=== PATIENT | male | born 1980 | race African-American/Black ===

== ENCOUNTER 2017-03-06 15:35 | Inpatient (IN) ==
[2017-03-06] MEDS ORDERED: SODIUM CHLORIDE 0.9% 1,000 ML IV STA (16:52)
[2017-03-06] MEDS ORDERED: cefTRIAXone 1,000 MG in SODIUM CHLORIDE 0.9% 100 ML IV STA (16:52)
[2017-03-06] MEDS ORDERED: ACETAMINOPHEN 500 MG TABLET ONE (16:55)
[2017-03-06] MEDS ORDERED: ACETAMINOPHEN 500 MG TABLET PO STA (17:04)
[2017-03-06] MEDS ORDERED: cefTRIAXone 1,000 MG VIAL ONE (17:16)
[2017-03-06 17:17] LABS: Basophils % 1.1 % (0.0-0.8); Eosinophils # 0.3 10*3/uL (0.0-0.87); Eosinophils % 6.9 % (0.00-10.9); Hematocrit 30.9 VOL% (42.0-52.0); Hemoglobin 11.2 GM/DL (14.0-18.0); Immature Granulocytes % 1.6 %; Immature Granulocytes Absolute 0.06 #; Lymphocytes # 0.5 10*3/uL (1.4-4.0); Lymphocytes % 14.2 % (21.2-54.2); Mean Corpuscular HGB Conc 36.2 GM/DL (32-36); Mean Corpuscular Hemoglobin 31 PG (27-34); Mean Corpuscular Volume 86.6 FL (87-102); Mean Platelet Volume 10.2 FL (9.6-12.0); Monocytes # 0.4 10*3/uL (0.11-0.8); Monocytes % 10.3 % (1.7-12.7); Neutrophils # 2.5 10*3/uL (1.4-7.4); Neutrophils % 65.9 % (38.7-73.9); Platelet Count 248 T/CUMM (130-400); Red Blood Count 3.57 MC/CUMM (3.8-5.5); Red Cell Distribution Width 17.2 % (9.3-17.3); White Blood Count 3.8 T/CUMM (4-12)
[2017-03-06 17:28] LABS: INR 1.1; PT Patient Result 11.4 SECS; Partial Thromboplastin Time 32.9 SECS (0-40)
[2017-03-06 17:43] LABS: Eosinophils,CSF 1 %; Lymphocytes,CSF 32 %; Monocytes,CSF 8 %; Neutrophils,CSF 59 %
[2017-03-06 17:57] LABS: Albumin 3.8 G/DL (3.4-5.0); Bilirubin,Total 0.5 MG/DL (0.2-1.0); Calcium 9.2 MG/DL (8.5-10.1); Osmolality,Calculated 243.9 MOS/KG (273-304); Potassium 4.7 MMOL/L (3.5-5.1)
[2017-03-06] MEDS ORDERED: guaiFENesin/DM ER 600-30 MG TABLET PO PRN (18:13)
[2017-03-06] MEDS ORDERED: ONDANSETRON 4 MG/2 ML VIAL IV PRN (18:13)
[2017-03-06] MEDS ORDERED: ACETAMINOPHEN 325 MG TABLET PO PRN (18:13)
[2017-03-06] MEDS ORDERED: diphenhydrAMINE CAP 25 MG CAPSULE PO PRN (18:13)
[2017-03-06] MEDS ORDERED: DOCUSATE SODIUM 100 MG CAPSULE PO PRN (18:13)
[2017-03-06] MEDS ORDERED: MORPHINE 2 MG/1 ML SYRINGE IV PRN (18:13)
[2017-03-06] MEDS ORDERED: LACTULOSE 20 GM/30 ML UDCUP PO PRN (18:13)
[2017-03-06] MEDS ORDERED: PROMETHAZINE 25 MG/1 ML VIAL IM PRN (18:13)
[2017-03-06] MEDS ORDERED: KETOROLAC 60 MG/2 ML VIAL IM ONE (18:20)
[2017-03-06] MEDS ORDERED: DEXAMETHASONE 10 MG/1 ML VIAL ONE (18:20)
[2017-03-06] MEDS: acetaZOLAMIDE 250 MG TABLET PO SCH (18:30)
[2017-03-06 18:36] LABS: Free T4 (Free Thyroxine) 0.52 NG/DL (0.76-1.46); Thyroid Stimulating Hormone 1.71 uIU/ml (0.358-3.74)
[2017-03-06] MEDS ORDERED: DEXTROSE 5% IV SCH (19:00)
[2017-03-06] MEDS ORDERED: AMPHOTERICIN B IV SCH (19:00)
[2017-03-06 19:24] LABS: Appearance,CSF Clear
[2017-03-06 19:25] LABS: Red Blood Cell,CSF 74 C/CUMM; White Blood Cell,CSF 48 C/CUMM
[2017-03-06] MEDS ORDERED: SULFAMETHOX/TRIMETHOPRIM 800-160 MG TABLET PO SCH (19:38)
[2017-03-06] MEDS ORDERED: acetaZOLAMIDE 250 MG TABLET PO SCH (21:00)
[2017-03-06] MEDS: AZITHROMYCIN 40 MG/ML 15 ML/BOTTLE PO SCH (22:02)
[2017-03-06] MEDS: SODIUM CHLORIDE 0.9% 1,000 ML IV SCH (22:03)
[2017-03-06] MEDS: ENOXAPARIN 40 MG/0.4 ML SYRINGE SUBCUT SCH (22:04)
[2017-03-06] MEDS: CIPROFLOXACIN 500 MG TABLET PO SCH (22:04)
[2017-03-07] MEDS: FLUCYTOSINE 500 MG CAPSULE PO SCH ×3 (00:28→11:26)
[2017-03-07 08:15] LABS: Basophils # 0.1 10*3/uL (0.0-0.2); Basophils % 0.9 % (0.0-0.8); Eosinophils % 0.3 % (0.00-10.9); Hematocrit 31.4 VOL% (42.0-52.0); Hemoglobin 11.3 GM/DL (14.0-18.0); Immature Granulocytes % 6.3 %; Immature Granulocytes Absolute 0.41 #; Lymphocytes # 0.4 10*3/uL (1.4-4.0); Lymphocytes % 5.5 % (21.2-54.2); Mean Corpuscular Hemoglobin 32 PG (27-34); Mean Corpuscular Volume 88.5 FL (87-102); Mean Platelet Volume 10.1 FL (9.6-12.0); Monocytes # 0.4 10*3/uL (0.11-0.8); Monocytes % 6.8 % (1.7-12.7); Neutrophils # 5.2 10*3/uL (1.4-7.4); Neutrophils % 80.2 % (38.7-73.9); Platelet Count 204 T/CUMM (130-400); Red Blood Count 3.55 MC/CUMM (3.8-5.5); Red Cell Distribution Width 17.4 % (9.3-17.3); White Blood Count 6.5 T/CUMM (4-12)
[2017-03-07] MEDS: CIPROFLOXACIN 500 MG TABLET PO SCH (08:21)
[2017-03-07] MEDS: acetaZOLAMIDE 250 MG TABLET PO SCH (08:21)
[2017-03-07] MEDS: PANTOPRAZOLE 40 MG TABLET PO SCH (08:21)
[2017-03-07 08:46] LABS: Albumin 3.6 G/DL (3.4-5.0); Bilirubin,Total 0.6 MG/DL (0.2-1.0); Calcium 9.2 MG/DL (8.5-10.1); Magnesium 2.4 MG/DL (1.8-2.4); Osmolality,Calculated 258.9 MOS/KG (273-304); Potassium 4.1 MMOL/L (3.5-5.1); Total Protein 8.4 G/DL (6.4-8.3)
[2017-03-07] MEDS: SODIUM CHLORIDE 0.9% 1,000 ML IV SCH ×3 (09:23→17:45)
[2017-03-07 10:26] LABS: Band Neutrophils 34 % (0-10); Eosinophils 1 % (0-10); Lymphocytes 9 % (20-55); Segmented Neutrophils 52 % (50-85); Total Cells Counted 100
[2017-03-07 10:27] LABS: Anisocytosis 1+
[2017-03-07 10:28] LABS: Poikilocytosis 1+
[2017-03-07] MEDS: SODIUM CHLORIDE 0.9% 1,000 ML IV PRN (15:49)
[2017-03-07] MEDS: AMPHOTERICIN B LIPOSOMAL IV SCH (16:49)
[2017-03-07] MEDS: DEXTROSE 5% IV SCH (16:49)
[2017-03-07] MEDS ORDERED: acetaZOLAMIDE 250 MG TABLET PO ONE (17:15)
[2017-03-07 18:20] LABS: Hepatitis B Core Ab Result Negative (Negative); Hepatitis B Surface Ab Result Negative; Hepatitis B Surface Ag Quant 0.11 Index; Hepatitis B Surface Ag Result Negative (Negative); Hepatitis C Virus Ab Result Negative (Negative)
[2017-03-07] MEDS: ENOXAPARIN 40 MG/0.4 ML SYRINGE SUBCUT SCH (22:05)
[2017-03-08] MEDS: SODIUM CHLORIDE 0.9% 1,000 ML IV SCH ×2 (03:03→11:35)
[2017-03-08 06:18] LABS: Basophils # 0.1 10*3/uL (0.0-0.2); Eosinophils # 0.1 10*3/uL (0.0-0.87); Eosinophils % 2.3 % (0.00-10.9); Hematocrit 27.5 VOL% (42.0-52.0); Hemoglobin 9.6 GM/DL (14.0-18.0); Immature Granulocytes % 2.1 %; Lymphocytes # 0.6 10*3/uL (1.4-4.0); Lymphocytes % 12.7 % (21.2-54.2); Mean Corpuscular HGB Conc 34.9 GM/DL (32-36); Mean Corpuscular Hemoglobin 31 PG (27-34); Mean Corpuscular Volume 89.6 FL (87-102); Mean Platelet Volume 10.6 FL (9.6-12.0); Monocytes # 0.5 10*3/uL (0.11-0.8); Monocytes % 10.2 % (1.7-12.7); Neutrophils # 3.4 10*3/uL (1.4-7.4); Neutrophils % 71.7 % (38.7-73.9); Platelet Count 194 T/CUMM (130-400); Red Blood Count 3.07 MC/CUMM (3.8-5.5); Red Cell Distribution Width 17.8 % (9.3-17.3); White Blood Count 4.8 T/CUMM (4-12)
[2017-03-08 06:52] LABS: Albumin 3.3 G/DL (3.4-5.0); Bilirubin,Total 0.5 MG/DL (0.2-1.0); Calcium 8.2 MG/DL (8.5-10.1); Osmolality,Calculated 263.4 MOS/KG (273-304); Potassium 3.6 MMOL/L (3.5-5.1); Total Protein 7.3 G/DL (6.4-8.3)
[2017-03-08] MEDS: SULFAMETHOX/TRIMETHOPRIM 800-160 MG TABLET PO SCH (08:11)
[2017-03-08] MEDS: acetaZOLAMIDE 250 MG TABLET PO SCH (08:11)
[2017-03-08] MEDS: PANTOPRAZOLE 40 MG TABLET PO SCH (08:12)
[2017-03-08] MEDS: ACETAMINOPHEN 325 MG TABLET PO PRN ×2 (08:12→16:40)
[2017-03-08] MEDS ORDERED: FLUCYTOSINE 500 MG CAPSULE PO ONE ×2 (09:00)
[2017-03-08] MEDS: FLUCYTOSINE 500 MG CAPSULE PO SCH ×3 (11:36→22:08)
[2017-03-08] MEDS: DEXTROSE 5% IV SCH (15:21)
[2017-03-08] MEDS: AMPHOTERICIN B LIPOSOMAL IV SCH (15:21)
[2017-03-08] MEDS: SODIUM CHLORIDE 0.9% 1,000 ML IV PRN (15:27)
[2017-03-08] MEDS: ENOXAPARIN 40 MG/0.4 ML SYRINGE SUBCUT SCH (22:08)
[2017-03-09] MEDS: ACETAMINOPHEN 325 MG TABLET PO PRN ×3 (00:43→18:32)
[2017-03-09] MEDS: SODIUM CHLORIDE 0.9% 1,000 ML IV SCH ×3 (00:57→16:17)
[2017-03-09] MEDS: FLUCYTOSINE 500 MG CAPSULE PO SCH ×4 (04:39→22:06)
[2017-03-09] MEDS: SULFAMETHOX/TRIMETHOPRIM 800-160 MG TABLET PO SCH (08:55)
[2017-03-09] MEDS: acetaZOLAMIDE 250 MG TABLET PO SCH ×3 (08:56→22:05)
[2017-03-09] MEDS: PANTOPRAZOLE 40 MG TABLET PO SCH (08:57)
[2017-03-09 10:42] LABS: Basophils % 1.1 % (0.0-0.8); Eosinophils # 0.1 10*3/uL (0.0-0.87); Eosinophils % 1.4 % (0.00-10.9); Hematocrit 28.1 VOL% (42.0-52.0); Hemoglobin 10.2 GM/DL (14.0-18.0); Immature Granulocytes % 1.9 %; Immature Granulocytes Absolute 0.07 #; Lymphocytes # 0.3 10*3/uL (1.4-4.0); Mean Corpuscular HGB Conc 36.3 GM/DL (32-36); Mean Corpuscular Hemoglobin 32 PG (27-34); Mean Corpuscular Volume 87.5 FL (87-102); Mean Platelet Volume 9.3 FL (9.6-12.0); Monocytes # 0.3 10*3/uL (0.11-0.8); Monocytes % 8.2 % (1.7-12.7); Neutrophils # 2.9 10*3/uL (1.4-7.4); Neutrophils % 79.4 % (38.7-73.9); Platelet Count 181 T/CUMM (130-400); Red Blood Count 3.21 MC/CUMM (3.8-5.5); Red Cell Distribution Width 17.4 % (9.3-17.3); White Blood Count 3.6 T/CUMM (4-12)
[2017-03-09 11:24] LABS: Albumin 3.3 G/DL (3.4-5.0); Bilirubin,Total 0.6 MG/DL (0.2-1.0); Calcium 8.6 MG/DL (8.5-10.1); Osmolality,Calculated 263.4 MOS/KG (273-304); Potassium 3.6 MMOL/L (3.5-5.1); Total Protein 7.4 G/DL (6.4-8.3)
[2017-03-09] MEDS: SODIUM CHLORIDE 0.9% 1,000 ML IV PRN (15:27)
[2017-03-09] MEDS: DEXTROSE 5% IV SCH (16:18)
[2017-03-09] MEDS: AMPHOTERICIN B LIPOSOMAL IV SCH (16:18)
[2017-03-09] MEDS: ENOXAPARIN 40 MG/0.4 ML SYRINGE SUBCUT SCH (22:06)
[2017-03-10] MEDS: ACETAMINOPHEN 325 MG TABLET PO PRN ×3 (00:55→16:46)
[2017-03-10] MEDS: SODIUM CHLORIDE 0.9% 1,000 ML IV SCH ×3 (01:12→08:57)
[2017-03-10] MEDS: FLUCYTOSINE 500 MG CAPSULE PO SCH ×4 (04:23→21:30)
[2017-03-10 05:38] LABS: Basophils % 1.1 % (0.0-0.8); Eosinophils # 0.1 10*3/uL (0.0-0.87); Eosinophils % 2.5 % (0.00-10.9); Hematocrit 24.7 VOL% (42.0-52.0); Immature Granulocytes % 3.7 %; Immature Granulocytes Absolute 0.13 #; Lymphocytes # 0.6 10*3/uL (1.4-4.0); Lymphocytes % 16.6 % (21.2-54.2); Mean Corpuscular Hemoglobin 32 PG (27-34); Mean Corpuscular Volume 87.6 FL (87-102); Mean Platelet Volume 10.2 FL (9.6-12.0); Monocytes # 0.4 10*3/uL (0.11-0.8); Monocytes % 10.7 % (1.7-12.7); Neutrophils # 2.3 10*3/uL (1.4-7.4); Neutrophils % 65.4 % (38.7-73.9); Platelet Count 195 T/CUMM (130-400); Red Blood Count 2.82 MC/CUMM (3.8-5.5); Red Cell Distribution Width 17.3 % (9.3-17.3); White Blood Count 3.6 T/CUMM (4-12)
[2017-03-10 05:39] LABS: Hemoglobin 8.9 GM/DL (14.0-18.0)
[2017-03-10 06:07] LABS: Bilirubin,Total 0.6 MG/DL (0.2-1.0); Calcium 8.2 MG/DL (8.5-10.1); Osmolality,Calculated 263.2 MOS/KG (273-304); Potassium 3.3 MMOL/L (3.5-5.1); Total Protein 6.8 G/DL (6.4-8.3)
[2017-03-10] MEDS: SULFAMETHOX/TRIMETHOPRIM 800-160 MG TABLET PO SCH (08:59)
[2017-03-10] MEDS: acetaZOLAMIDE 250 MG TABLET PO SCH ×4 (08:59→21:30)
[2017-03-10] MEDS: PANTOPRAZOLE 40 MG TABLET PO SCH (09:00)
[2017-03-10] MEDS: POTASSIUM CHLORIDE 20 MEQ/15 ML UDCUP PO SCH ×2 (09:01→21:30)
[2017-03-10] MEDS: SODIUM CHLORIDE 0.9% 1,000 ML IV PRN (15:41)
[2017-03-10] MEDS: AMPHOTERICIN B LIPOSOMAL IV SCH (16:45)
[2017-03-10] MEDS: DEXTROSE 5% IV SCH (16:45)
[2017-03-10] MEDS: ENOXAPARIN 40 MG/0.4 ML SYRINGE SUBCUT SCH (21:30)
[2017-03-11] MEDS: SODIUM CHLORIDE 0.9% 1,000 ML IV SCH ×4 (02:10→22:31)
[2017-03-11] MEDS: FLUCYTOSINE 500 MG CAPSULE PO SCH ×4 (05:22→22:00)
[2017-03-11 06:13] LABS: Basophils # 0.1 10*3/uL (0.0-0.2); Basophils % 1.6 % (0.0-0.8); Eosinophils # 0.1 10*3/uL (0.0-0.87); Eosinophils % 4.1 % (0.00-10.9); Hematocrit 25.5 VOL% (42.0-52.0); Hemoglobin 9.1 GM/DL (14.0-18.0); Immature Granulocytes % 4.1 %; Immature Granulocytes Absolute 0.13 #; Lymphocytes # 0.6 10*3/uL (1.4-4.0); Lymphocytes % 17.8 % (21.2-54.2); Mean Corpuscular HGB Conc 35.7 GM/DL (32-36); Mean Corpuscular Hemoglobin 31 PG (27-34); Mean Corpuscular Volume 87.9 FL (87-102); Monocytes # 0.3 10*3/uL (0.11-0.8); Monocytes % 9.1 % (1.7-12.7); Neutrophils % 63.3 % (38.7-73.9); Platelet Count 243 T/CUMM (130-400); Red Cell Distribution Width 17.3 % (9.3-17.3); White Blood Count 3.2 T/CUMM (4-12)
[2017-03-11 06:46] LABS: Calcium 8.6 MG/DL (8.5-10.1); Osmolality,Calculated 261.4 MOS/KG (273-304); Potassium 3.6 MMOL/L (3.5-5.1)
[2017-03-11] MEDS ORDERED: MAGNESIUM SULF RIDER 2 GM in PREMIX 1 EACH IV ONE (09:00)
[2017-03-11 09:16] LABS: % CD4 (T Cells) 1 % (32-64); % CD8 (T Cells) 48 % (15-40); 4/8 Ratio 0 (>=0.9)
[2017-03-11] MEDS: SULFAMETHOX/TRIMETHOPRIM 800-160 MG TABLET PO SCH (09:47)
[2017-03-11] MEDS: acetaZOLAMIDE 250 MG TABLET PO SCH ×4 (09:47→22:00)
[2017-03-11] MEDS: PANTOPRAZOLE 40 MG TABLET PO SCH (09:47)
[2017-03-11] MEDS: POTASSIUM CHLORIDE 20 MEQ/15 ML UDCUP PO SCH ×2 (09:49→22:01)
[2017-03-11] MEDS: AMPHOTERICIN B LIPOSOMAL IV SCH (15:41)
[2017-03-11] MEDS: DEXTROSE 5% IV SCH (15:41)
[2017-03-11] MEDS: SODIUM CHLORIDE 0.9% 1,000 ML IV PRN (15:45)
[2017-03-11] MEDS: ENOXAPARIN 40 MG/0.4 ML SYRINGE SUBCUT SCH (22:00)
[2017-03-12] MEDS: FLUCYTOSINE 500 MG CAPSULE PO SCH ×4 (03:08→22:12)
[2017-03-12 08:08] LABS: Basophils % 1.5 % (0.0-0.8); Eosinophils # 0.2 10*3/uL (0.0-0.87); Eosinophils % 5.5 % (0.00-10.9); Hemoglobin 10.3 GM/DL (14.0-18.0); Immature Granulocytes % 5.1 %; Immature Granulocytes Absolute 0.14 #; Lymphocytes # 0.5 10*3/uL (1.4-4.0); Lymphocytes % 19.6 % (21.2-54.2); Mean Corpuscular HGB Conc 35.5 GM/DL (32-36); Mean Corpuscular Hemoglobin 31 PG (27-34); Mean Corpuscular Volume 88.4 FL (87-102); Monocytes # 0.3 10*3/uL (0.11-0.8); Monocytes % 11.6 % (1.7-12.7); Neutrophils # 1.6 10*3/uL (1.4-7.4); Neutrophils % 56.7 % (38.7-73.9); Platelet Count 193 T/CUMM (130-400); Red Blood Count 3.28 MC/CUMM (3.8-5.5); Red Cell Distribution Width 17.5 % (9.3-17.3); White Blood Count 2.8 T/CUMM (4-12)
[2017-03-12 08:32] LABS: Eosinophils 1 % (0-10); Hypochromasia 2+; Lymphocytes 27 % (20-55); Microcytosis 2+; Platelet Estimate Adequate; Segmented Neutrophils 64 % (50-85); Total Cells Counted 100
[2017-03-12 08:53] LABS: Alanine Aminotransferase 42 U/L (16-61); Albumin 3.1 G/DL (3.4-5.0); Alkaline Phosphatase 70 U/L (45-117); Aspartate Amino Transferase 35 U/L (0-37); Bilirubin,Total < 0.39 MG/DL (0.2-1.0); Blood Urea Nitrogen 7 MG/DL (7-18); Calcium 8.6 MG/DL (8.5-10.1); Glucose 79 MG/DL (74-106); Osmolality,Calculated 262.4 MOS/KG (273-304); Potassium 4.4 MMOL/L (3.5-5.1); Sodium 133 MMOL/L (136-145); Total Protein 7.6 G/DL (6.4-8.3)
[2017-03-12] MEDS: acetaZOLAMIDE 250 MG TABLET PO SCH ×4 (09:26→22:04)
[2017-03-12] MEDS: POTASSIUM CHLORIDE 20 MEQ/15 ML UDCUP PO SCH ×2 (09:26→22:04)
[2017-03-12] MEDS: SULFAMETHOX/TRIMETHOPRIM 800-160 MG TABLET PO SCH (09:26)
[2017-03-12] MEDS: PANTOPRAZOLE 40 MG TABLET PO SCH (09:30)
[2017-03-12] MEDS: SODIUM CHLORIDE 0.9% 1,000 ML IV SCH ×2 (09:48→22:05)
[2017-03-12] MEDS: AMPHOTERICIN B LIPOSOMAL IV SCH (15:10)
[2017-03-12] MEDS: DEXTROSE 5% IV SCH (15:10)
[2017-03-12 15:16] LABS: Histoplasma Immnodiffusion Negative (Negative)
[2017-03-12] MEDS: ENOXAPARIN 40 MG/0.4 ML SYRINGE SUBCUT SCH (22:04)
[2017-03-13] MEDS: FLUCYTOSINE 500 MG CAPSULE PO SCH ×4 (03:12→22:13)
[2017-03-13 06:06] LABS: Calcium 8.4 MG/DL (8.5-10.1); Osmolality,Calculated 264.2 MOS/KG (273-304); Potassium 3.6 MMOL/L (3.5-5.1)
[2017-03-13] MEDS: PANTOPRAZOLE 40 MG TABLET PO SCH (09:31)
[2017-03-13] MEDS: POTASSIUM CHLORIDE 20 MEQ/15 ML UDCUP PO SCH ×2 (09:32→22:13)
[2017-03-13] MEDS: acetaZOLAMIDE 250 MG TABLET PO SCH ×4 (09:32→22:13)
[2017-03-13] MEDS: SULFAMETHOX/TRIMETHOPRIM 800-160 MG TABLET PO SCH (09:32)
[2017-03-13] MEDS: SODIUM CHLORIDE 0.9% 1,000 ML IV SCH (15:34)
[2017-03-13] MEDS: DEXTROSE 5% IV SCH (15:35)
[2017-03-13] MEDS: AMPHOTERICIN B LIPOSOMAL IV SCH (15:35)
[2017-03-13] MEDS: ENOXAPARIN 40 MG/0.4 ML SYRINGE SUBCUT SCH ×2 (22:13→22:15)
[2017-03-13] MEDS: AZITHROMYCIN 40 MG/ML 15 ML/BOTTLE PO SCH (23:02)
[2017-03-14] MEDS: SODIUM CHLORIDE 0.9% 1,000 ML IV SCH ×3 (03:11→12:39)
[2017-03-14] MEDS: FLUCYTOSINE 500 MG CAPSULE PO SCH ×3 (03:11→14:34)
[2017-03-14 06:21] LABS: Basophils % 1.6 % (0.0-0.8); Eosinophils # 0.2 10*3/uL (0.0-0.87); Eosinophils % 6.7 % (0.00-10.9); Hematocrit 25.3 VOL% (42.0-52.0); Hemoglobin 8.9 GM/DL (14.0-18.0); Immature Granulocytes Absolute 0.15 #; Lymphocytes # 0.4 10*3/uL (1.4-4.0); Lymphocytes % 16.7 % (21.2-54.2); Mean Corpuscular HGB Conc 35.2 GM/DL (32-36); Mean Corpuscular Hemoglobin 31 PG (27-34); Mean Corpuscular Volume 89.1 FL (87-102); Mean Platelet Volume 9.3 FL (9.6-12.0); Monocytes # 0.3 10*3/uL (0.11-0.8); Monocytes % 11.5 % (1.7-12.7); Neutrophils # 1.5 10*3/uL (1.4-7.4); Neutrophils % 57.5 % (38.7-73.9); Platelet Count 282 T/CUMM (130-400); Red Blood Count 2.84 MC/CUMM (3.8-5.5); Red Cell Distribution Width 17.9 % (9.3-17.3); White Blood Count 2.5 T/CUMM (4-12)
[2017-03-14 06:54] LABS: Alanine Aminotransferase 50 U/L (16-61); Alkaline Phosphatase 59 U/L (45-117); Aspartate Amino Transferase 29 U/L (0-37); Bilirubin,Total < 0.39 MG/DL (0.2-1.0); Blood Urea Nitrogen 8 MG/DL (7-18); Calcium 8.5 MG/DL (8.5-10.1); Glucose 85 MG/DL (74-106); Magnesium 2.1 MG/DL (1.8-2.4); Osmolality,Calculated 264.2 MOS/KG (273-304); Potassium 3.9 MMOL/L (3.5-5.1); Sodium 134 MMOL/L (136-145)
[2017-03-14 06:57] LABS: Band Neutrophils 1 % (0-10); Eosinophils 15 % (0-10); Lymphocytes 28 % (20-55); Segmented Neutrophils 41 % (50-85); Total Cells Counted 100
[2017-03-14 06:58] LABS: Giant Platelets Few; Hypochromasia 1+; Microcytosis 1+; Ovalocytes Slight; Platelet Estimate Adequate
[2017-03-14] MEDS: SULFAMETHOX/TRIMETHOPRIM 800-160 MG TABLET PO SCH (09:10)
[2017-03-14] MEDS: acetaZOLAMIDE 250 MG TABLET PO SCH ×3 (09:10→16:56)
[2017-03-14] MEDS: PANTOPRAZOLE 40 MG TABLET PO SCH (09:10)
[2017-03-14] MEDS: POTASSIUM CHLORIDE 20 MEQ/15 ML UDCUP PO SCH (09:11)
[2017-03-14] MEDS: SODIUM CHLORIDE 0.9% 1,000 ML IV PRN (14:33)
[2017-03-14] MEDS: DEXTROSE 5% IV SCH (15:47)
[2017-03-14] MEDS: AMPHOTERICIN B LIPOSOMAL IV SCH (15:47)
[2017-03-14 17:03] VITALS: BP 100/65
== END 2017-03-14 19:19 | disposition hospice, home (50) | DRG 97 ==
LOC: N.ED 15:35 → SUATTDRO 18:13 → N.EDINP 18:13 → N.2E 19:26
PROVIDERS: ADMIT Internal Medicine; ATTEND Internal Medicine

== ENCOUNTER 2017-03-16 07:26 | Inpatient (IN) ==
[2017-03-16 19:39] LABS: Basophils % 0.7 % (0.0-0.8); Eosinophils # 0.2 10*3/uL (0.0-0.87); Eosinophils % 8.2 % (0.00-10.9); Hemoglobin 10.4 GM/DL (14.0-18.0); Immature Granulocytes % 6.8 %; Immature Granulocytes Absolute 0.19 #; Lymphocytes # 0.3 10*3/uL (1.4-4.0); Lymphocytes % 11.4 % (21.2-54.2); Mean Corpuscular HGB Conc 37.1 GM/DL (32-36); Mean Corpuscular Hemoglobin 32 PG (27-34); Mean Corpuscular Volume 86.4 FL (87-102); Mean Platelet Volume 8.8 FL (9.6-12.0); Monocytes # 0.4 10*3/uL (0.11-0.8); Monocytes % 14.3 % (1.7-12.7); Neutrophils # 1.6 10*3/uL (1.4-7.4); Neutrophils % 58.6 % (38.7-73.9); Platelet Count 298 T/CUMM (130-400); Red Blood Count 3.24 MC/CUMM (3.8-5.5); Red Cell Distribution Width 17.3 % (9.3-17.3); White Blood Count 2.8 T/CUMM (4-12)
[2017-03-16 19:54] LABS: Calcium 8.8 MG/DL (8.5-10.1); Magnesium 1.9 MG/DL (1.8-2.4); Osmolality,Calculated 269.1 MOS/KG (273-304); Potassium 3.2 MMOL/L (3.5-5.1)
[2017-03-16] MEDS ORDERED: [UNRECOGNIZED DRUG - OTHER] IV SCH (20:30)
[2017-03-16] MEDS ORDERED: AZITHROMYCIN 40 MG/ML 15 ML/BOTTLE PO SCH (21:00)
[2017-03-16] MEDS: FLUCYTOSINE 500 MG CAPSULE PO SCH (22:21)
[2017-03-16] MEDS: AMPHOTERICIN B LIPOSOMAL IV SCH (22:22)
[2017-03-16] MEDS: DEXTROSE 5% IV SCH (22:22)
[2017-03-17] MEDS: FLUCYTOSINE 500 MG CAPSULE PO SCH ×4 (04:04→22:00)
[2017-03-17 06:37] LABS: Eosinophils # 0.3 10*3/uL (0.0-0.87); Eosinophils % 8.4 % (0.00-10.9); Hematocrit 27.4 VOL% (42.0-52.0); Hemoglobin 10.1 GM/DL (14.0-18.0); Immature Granulocytes % 6.7 %; Lymphocytes # 0.4 10*3/uL (1.4-4.0); Mean Corpuscular HGB Conc 36.9 GM/DL (32-36); Mean Corpuscular Hemoglobin 32 PG (27-34); Mean Corpuscular Volume 86.7 FL (87-102); Mean Platelet Volume 9.1 FL (9.6-12.0); Monocytes # 0.4 10*3/uL (0.11-0.8); Monocytes % 14.4 % (1.7-12.7); Neutrophils # 1.7 10*3/uL (1.4-7.4); Neutrophils % 56.5 % (38.7-73.9); Platelet Count 313 T/CUMM (130-400); Red Blood Count 3.16 MC/CUMM (3.8-5.5); Red Cell Distribution Width 17.7 % (9.3-17.3)
[2017-03-17 07:18] LABS: Calcium 9.2 MG/DL (8.5-10.1); Free T4 (Free Thyroxine) 0.63 NG/DL (0.76-1.46); Osmolality,Calculated 267.2 MOS/KG (273-304); Potassium 3.3 MMOL/L (3.5-5.1); Thyroid Stimulating Hormone 1.5 uIU/ml (0.358-3.74)
[2017-03-17 07:37] LABS: Hypochromasia 2+; Microcytosis 1+
[2017-03-17] MEDS: acetaZOLAMIDE 250 MG TABLET PO SCH (09:45)
[2017-03-17] MEDS: PANTOPRAZOLE 40 MG TABLET PO SCH (09:46)
[2017-03-17] MEDS: POTASSIUM CHLORIDE 20 MEQ TABLET PO PRN ×2 (17:38→23:21)
[2017-03-17] MEDS: DEXTROSE 5% IV SCH (22:00)
[2017-03-17] MEDS: AMPHOTERICIN B LIPOSOMAL IV SCH (22:00)
[2017-03-18] MEDS: ACETAMINOPHEN 325 MG TABLET PO PRN (01:26)
[2017-03-18] MEDS: POTASSIUM CHLORIDE 20 MEQ TABLET PO PRN (01:27)
[2017-03-18] MEDS: FLUCYTOSINE 500 MG CAPSULE PO SCH ×4 (03:57→22:52)
[2017-03-18] MEDS: acetaZOLAMIDE 250 MG TABLET PO SCH ×4 (08:46→22:52)
[2017-03-18] MEDS: PANTOPRAZOLE 40 MG TABLET PO SCH (08:46)
[2017-03-18] MEDS ORDERED: SULFAMETHOX/TRIMETHOPRIM 800-160 MG TABLET PO SCH (09:00)
[2017-03-18] MEDS: AMPHOTERICIN B LIPOSOMAL IV SCH (16:29)
[2017-03-18] MEDS: DEXTROSE 5% IV SCH (16:29)
[2017-03-18] MEDS: SODIUM CHLORIDE 0.9% 1,000 ML IV SCH (16:40)
[2017-03-19] MEDS: SODIUM CHLORIDE 0.9% 1,000 ML IV SCH ×3 (02:55→22:37)
[2017-03-19] MEDS: FLUCYTOSINE 500 MG CAPSULE PO SCH ×4 (03:00→22:36)
[2017-03-19] MEDS: PANTOPRAZOLE 40 MG TABLET PO SCH (10:07)
[2017-03-19] MEDS: acetaZOLAMIDE 250 MG TABLET PO SCH ×4 (10:07→22:35)
[2017-03-19] MEDS: SULFAMETHOX/TRIMETHOPRIM 800-160 MG TABLET PO SCH (10:07)
[2017-03-19] MEDS ORDERED: TUBERCULIN SKIN TEST 0.1 ML SYRINGE INTRADERM ONE (16:00)
[2017-03-19] MEDS: DEXTROSE 5% IV SCH (16:09)
[2017-03-19] MEDS: AMPHOTERICIN B LIPOSOMAL IV SCH (16:09)
[2017-03-20] MEDS: FLUCYTOSINE 500 MG CAPSULE PO SCH ×4 (03:12→20:51)
[2017-03-20 05:35] LABS: Basophils % 0.4 % (0.0-0.8); Eosinophils # 0.3 10*3/uL (0.0-0.87); Eosinophils % 10.8 % (0.00-10.9); Hematocrit 22.5 VOL% (42.0-52.0); Hemoglobin 8.2 GM/DL (14.0-18.0); Immature Granulocytes % 1.2 %; Immature Granulocytes Absolute 0.03 #; Lymphocytes # 0.6 10*3/uL (1.4-4.0); Lymphocytes % 22.8 % (21.2-54.2); Mean Corpuscular HGB Conc 36.4 GM/DL (32-36); Mean Corpuscular Hemoglobin 32 PG (27-34); Mean Corpuscular Volume 87.5 FL (87-102); Mean Platelet Volume 9.2 FL (9.6-12.0); Monocytes # 0.3 10*3/uL (0.11-0.8); Monocytes % 10.8 % (1.7-12.7); Neutrophils # 1.3 10*3/uL (1.4-7.4); Platelet Count 199 T/CUMM (130-400); Red Blood Count 2.57 MC/CUMM (3.8-5.5); Red Cell Distribution Width 17.2 % (9.3-17.3); White Blood Count 2.4 T/CUMM (4-12)
[2017-03-20 05:55] LABS: Alanine Aminotransferase 75 U/L (16-61); Albumin 2.8 G/DL (3.4-5.0); Alkaline Phosphatase 63 U/L (45-117); Aspartate Amino Transferase 48 U/L (0-37); Bilirubin,Total < 0.39 MG/DL (0.2-1.0); Blood Urea Nitrogen 8 MG/DL (7-18); Calcium 8.6 MG/DL (8.5-10.1); Glucose 90 MG/DL (74-106); Magnesium 2.1 MG/DL (1.8-2.4); Osmolality,Calculated 280.1 MOS/KG (273-304); Potassium 3.2 MMOL/L (3.5-5.1); Sodium 142 MMOL/L (136-145); Total Protein 6.3 G/DL (6.4-8.3)
[2017-03-20 06:05] LABS: Eosinophils 14 % (0-10); Giant Platelets Few; Hypochromasia 1+; Lymphocytes 22 % (20-55); Microcytosis 1+; Ovalocytes Slight; Platelet Estimate Adequate; Segmented Neutrophils 59 % (50-85); Total Cells Counted 100
[2017-03-20] MEDS: SODIUM CHLORIDE 0.9% 1,000 ML IV SCH ×2 (06:16→15:25)
[2017-03-20] MEDS: acetaZOLAMIDE 250 MG TABLET PO SCH ×4 (11:00→23:26)
[2017-03-20] MEDS: PANTOPRAZOLE 40 MG TABLET PO SCH (11:00)
[2017-03-20 11:34] LABS: Eosinophils,CSF 2 %; Lymphocytes,CSF 85 %; Monocytes,CSF 13 %
[2017-03-20 11:35] LABS: Appearance,CSF Clear; Red Blood Cell,CSF 11 C/CUMM; White Blood Cell,CSF 24 C/CUMM
[2017-03-20] MEDS: AMPHOTERICIN B LIPOSOMAL IV SCH (16:00)
[2017-03-20] MEDS: DEXTROSE 5% IV SCH (16:00)
[2017-03-20] MEDS: SULFAMETHOX/TRIMETHOPRIM 200-40 MG/5 ML -20 ML UDCUP PO SCH (19:05)
[2017-03-21] MEDS: SULFAMETHOX/TRIMETHOPRIM 800-160 MG TABLET PO SCH (02:14)
[2017-03-21] MEDS: FLUCYTOSINE 500 MG CAPSULE PO SCH ×4 (03:18→21:32)
[2017-03-21] MEDS: SODIUM CHLORIDE 0.9% 1,000 ML IV SCH ×3 (04:00→15:49)
[2017-03-21] MEDS: POTASSIUM CHLORIDE 20 MEQ/15 ML UDCUP PO SCH ×2 (05:00→05:01)
[2017-03-21 06:36] LABS: Basophils % 0.4 % (0.0-0.8); Eosinophils # 0.3 10*3/uL (0.0-0.87); Eosinophils % 13.7 % (0.00-10.9); Hematocrit 22.5 VOL% (42.0-52.0); Hemoglobin 8.1 GM/DL (14.0-18.0); Immature Granulocytes % 0.9 %; Immature Granulocytes Absolute 0.02 #; Lymphocytes # 0.4 10*3/uL (1.4-4.0); Lymphocytes % 18.8 % (21.2-54.2); Mean Corpuscular Hemoglobin 31 PG (27-34); Mean Corpuscular Volume 86.9 FL (87-102); Mean Platelet Volume 9.8 FL (9.6-12.0); Monocytes # 0.2 10*3/uL (0.11-0.8); Neutrophils # 1.3 10*3/uL (1.4-7.4); Neutrophils % 57.2 % (38.7-73.9); Platelet Count 196 T/CUMM (130-400); Red Blood Count 2.59 MC/CUMM (3.8-5.5); Red Cell Distribution Width 17.2 % (9.3-17.3); White Blood Count 2.3 T/CUMM (4-12)
[2017-03-21 07:08] LABS: Eosinophils 19 % (0-10); Giant Platelets Few; Hypochromasia 1+; Lymphocytes 24 % (20-55); Microcytosis 1+; Ovalocytes Slight; Platelet Estimate Normal; Segmented Neutrophils 53 % (50-85); Total Cells Counted 100
[2017-03-21 07:18] LABS: Albumin 2.8 G/DL (3.4-5.0); Bilirubin,Total 0.4 MG/DL (0.2-1.0); Calcium 8.4 MG/DL (8.5-10.1); Osmolality,Calculated 273.5 MOS/KG (273-304); Potassium 3.5 MMOL/L (3.5-5.1); Total Protein 6.3 G/DL (6.4-8.3)
[2017-03-21] MEDS: acetaZOLAMIDE 250 MG TABLET PO SCH ×4 (09:19→21:36)
[2017-03-21] MEDS: PANTOPRAZOLE 40 MG TABLET PO SCH (09:20)
[2017-03-21] MEDS: SULFAMETHOX/TRIMETHOPRIM 200-40 MG/5 ML -20 ML UDCUP PO SCH (09:21)
[2017-03-21] MEDS: DEXTROSE 5% IV SCH (15:41)
[2017-03-21] MEDS: AMPHOTERICIN B LIPOSOMAL IV SCH (15:41)
[2017-03-22] MEDS: FLUCYTOSINE 500 MG CAPSULE PO SCH ×4 (02:21→22:24)
[2017-03-22] MEDS: SODIUM CHLORIDE 0.9% 1,000 ML IV SCH ×2 (03:05→11:28)
[2017-03-22 07:55] LABS: Calcium 8.9 MG/DL (8.5-10.1); Osmolality,Calculated 272.5 MOS/KG (273-304); Potassium 3.1 MMOL/L (3.5-5.1)
[2017-03-22] MEDS ORDERED: PARoxetine 20 MG TABLET PO SCH (10:00)
[2017-03-22] MEDS: PANTOPRAZOLE 40 MG TABLET PO SCH (10:45)
[2017-03-22] MEDS: acetaZOLAMIDE 250 MG TABLET PO SCH ×4 (10:45→22:24)
[2017-03-22] MEDS: POTASSIUM CHLORIDE 20 MEQ TABLET PO PRN (10:45)
[2017-03-22] MEDS: SULFAMETHOX/TRIMETHOPRIM 200-40 MG/5 ML -20 ML UDCUP PO SCH (10:45)
[2017-03-22] MEDS: POTASSIUM CHLORIDE 20 MEQ/15 ML UDCUP PO SCH ×3 (11:26→15:45)
[2017-03-22] MEDS: ONDANSETRON 4 MG/2 ML VIAL IV PRN (13:23)
[2017-03-22 14:22] LABS: % Iron Saturation 22.2 % (18-50)
[2017-03-22] MEDS ORDERED: POTASSIUM CHLORIDE 20 MEQ TABLET PO ONE ×2 (15:50→18:00)
[2017-03-22] MEDS ORDERED: ONDANSETRON 4 MG/2 ML VIAL IV ONE (15:51)
[2017-03-22] MEDS: AMPHOTERICIN B LIPOSOMAL IV SCH (16:59)
[2017-03-22] MEDS: DEXTROSE 5% IV SCH (16:59)
[2017-03-22 19:22] LABS: Appearance,CSF Clear; Red Blood Cell,CSF 58 C/CUMM; White Blood Cell,CSF 4 C/CUMM
[2017-03-22 19:29] LABS: Eosinophils,CSF 1 %; Lymphocytes,CSF 86 %; Monocytes,CSF 11 %; Neutrophils,CSF 1 %
[2017-03-23] MEDS: FLUCYTOSINE 500 MG CAPSULE PO SCH ×4 (04:44→21:25)
[2017-03-23 05:04] LABS: Eosinophils # 0.7 10*3/uL (0.0-0.87); Eosinophils % 22.4 % (0.00-10.9); Hemoglobin 8.9 GM/DL (14.0-18.0); Immature Granulocytes Absolute 0.06 #; Lymphocytes # 0.6 10*3/uL (1.4-4.0); Lymphocytes % 20.7 % (21.2-54.2); Mean Corpuscular HGB Conc 37.1 GM/DL (32-36); Mean Corpuscular Hemoglobin 31 PG (27-34); Mean Corpuscular Volume 84.8 FL (87-102); Mean Platelet Volume 9.5 FL (9.6-12.0); Monocytes # 0.3 10*3/uL (0.11-0.8); Monocytes % 8.5 % (1.7-12.7); Neutrophils # 1.3 10*3/uL (1.4-7.4); Neutrophils % 45.4 % (38.7-73.9); Platelet Count 185 T/CUMM (130-400); Red Blood Count 2.83 MC/CUMM (3.8-5.5); Red Cell Distribution Width 17.1 % (9.3-17.3); White Blood Count 2.9 T/CUMM (4-12)
[2017-03-23 05:56] LABS: Albumin 3.2 G/DL (3.4-5.0); Bilirubin,Total 0.5 MG/DL (0.2-1.0); Calcium 9.4 MG/DL (8.5-10.1); Osmolality,Calculated 274.4 MOS/KG (273-304); Potassium 3.6 MMOL/L (3.5-5.1); Total Protein 7.3 G/DL (6.4-8.3)
[2017-03-23 07:25] LABS: Band Neutrophils 1 % (0-10); Eosinophils 23 % (0-10); Lymphocytes 19 % (20-55); Segmented Neutrophils 50 % (50-85); Total Cells Counted 100
[2017-03-23 07:26] LABS: Platelet Estimate Normal
[2017-03-23] MEDS: SULFAMETHOX/TRIMETHOPRIM 200-40 MG/5 ML -20 ML UDCUP PO SCH (10:05)
[2017-03-23] MEDS: PARoxetine 20 MG TABLET PO SCH (10:06)
[2017-03-23] MEDS: acetaZOLAMIDE 250 MG TABLET PO SCH ×4 (10:06→21:25)
[2017-03-23] MEDS: PANTOPRAZOLE 40 MG TABLET PO SCH (10:07)
[2017-03-23] MEDS: AZITHROMYCIN 40 MG/ML 15 ML/BOTTLE PO SCH (12:17)
[2017-03-23] MEDS: POTASSIUM CHLORIDE 20 MEQ TABLET PO PRN (12:29)
[2017-03-23] MEDS: ONDANSETRON 4 MG/2 ML VIAL IV PRN (12:38)
[2017-03-23] MEDS: DEXTROSE 5% IV SCH (16:35)
[2017-03-23] MEDS: AMPHOTERICIN B LIPOSOMAL IV SCH (16:35)
[2017-03-24] MEDS: FLUCYTOSINE 500 MG CAPSULE PO SCH ×4 (03:15→23:15)
[2017-03-24 06:15] LABS: Calcium 9.8 MG/DL (8.5-10.1); Magnesium 2.1 MG/DL (1.8-2.4); Osmolality,Calculated 278.3 MOS/KG (273-304); Potassium 3.3 MMOL/L (3.5-5.1)
[2017-03-24] MEDS ORDERED: POTASSIUM CHLORIDE 20 MEQ TABLET PO ONE (08:50)
[2017-03-24] MEDS: ONDANSETRON 4 MG/2 ML VIAL IV PRN (09:19)
[2017-03-24] MEDS: PARoxetine 20 MG TABLET PO SCH (09:25)
[2017-03-24] MEDS: PANTOPRAZOLE 40 MG TABLET PO SCH (09:26)
[2017-03-24] MEDS: SULFAMETHOX/TRIMETHOPRIM 200-40 MG/5 ML -20 ML UDCUP PO SCH (09:29)
[2017-03-24] MEDS: acetaZOLAMIDE 250 MG TABLET PO SCH ×4 (09:29→23:14)
[2017-03-24] MEDS: DEXTROSE 5% IV SCH (16:55)
[2017-03-24] MEDS: AMPHOTERICIN B LIPOSOMAL IV SCH (16:55)
[2017-03-25] MEDS: FLUCYTOSINE 500 MG CAPSULE PO SCH ×4 (03:50→22:34)
[2017-03-25 06:21] LABS: Calcium 10.1 MG/DL (8.5-10.1); Magnesium 2.2 MG/DL (1.8-2.4); Osmolality,Calculated 280.3 MOS/KG (273-304); Potassium 3.5 MMOL/L (3.5-5.1)
[2017-03-25] MEDS: acetaZOLAMIDE 250 MG TABLET PO SCH ×4 (10:38→22:35)
[2017-03-25] MEDS: SULFAMETHOX/TRIMETHOPRIM 200-40 MG/5 ML -20 ML UDCUP PO SCH (10:39)
[2017-03-25] MEDS: PANTOPRAZOLE 40 MG TABLET PO SCH (10:39)
[2017-03-25] MEDS: PARoxetine 20 MG TABLET PO SCH (10:40)
[2017-03-25] MEDS: DEXTROSE 5% IV SCH (16:03)
[2017-03-25] MEDS: AMPHOTERICIN B LIPOSOMAL IV SCH (16:03)
[2017-03-26] MEDS: SULFAMETHOX/TRIMETHOPRIM 200-40 MG/5 ML -20 ML UDCUP PO SCH (10:55)
[2017-03-26] MEDS: PARoxetine 20 MG TABLET PO SCH (10:55)
[2017-03-26] MEDS: PANTOPRAZOLE 40 MG TABLET PO SCH (10:55)
[2017-03-26] MEDS: FLUCYTOSINE 500 MG CAPSULE PO SCH ×3 (10:55→21:17)
[2017-03-26] MEDS: acetaZOLAMIDE 250 MG TABLET PO SCH ×4 (10:55→21:17)
[2017-03-26 10:57] LABS: Basophils # 0.1 10*3/uL (0.0-0.2); Basophils % 1.5 % (0.0-0.8); Eosinophils # 0.9 10*3/uL (0.0-0.87); Eosinophils % 21.1 % (0.00-10.9); Hematocrit 26.7 VOL% (42.0-52.0); Immature Granulocytes % 1.9 %; Immature Granulocytes Absolute 0.08 #; Lymphocytes # 0.7 10*3/uL (1.4-4.0); Lymphocytes % 15.7 % (21.2-54.2); Mean Corpuscular HGB Conc 37.5 GM/DL (32-36); Mean Corpuscular Hemoglobin 32 PG (27-34); Mean Corpuscular Volume 84.2 FL (87-102); Mean Platelet Volume 10.1 FL (9.6-12.0); Monocytes # 0.5 10*3/uL (0.11-0.8); Monocytes % 12.8 % (1.7-12.7); Neutrophils # 1.9 10*3/uL (1.4-7.4); Platelet Count 179 T/CUMM (130-400); Red Blood Count 3.17 MC/CUMM (3.8-5.5); Red Cell Distribution Width 17.9 % (9.3-17.3); White Blood Count 4.1 T/CUMM (4-12)
[2017-03-26 11:08] LABS: Calcium 9.5 MG/DL (8.5-10.1)
[2017-03-26 11:09] LABS: Albumin 3.7 G/DL (3.4-5.0); Bilirubin,Total 0.5 MG/DL (0.2-1.0); Magnesium 2.2 MG/DL (1.8-2.4); Osmolality,Calculated 278.5 MOS/KG (273-304); Potassium 3.3 MMOL/L (3.5-5.1); Total Protein 8.2 G/DL (6.4-8.3)
[2017-03-26] MEDS ORDERED: POTASSIUM CHLORIDE 20 MEQ TABLET PO ONE (15:03)
[2017-03-26] MEDS: SODIUM CHLORIDE 0.9% 1,000 ML IV PRN (15:20)
[2017-03-26] MEDS: AMPHOTERICIN B LIPOSOMAL IV SCH (16:07)
[2017-03-26] MEDS: DEXTROSE 5% IV SCH (16:07)
[2017-03-27] MEDS: FLUCYTOSINE 500 MG CAPSULE PO SCH ×4 (03:12→20:57)
[2017-03-27] MEDS: acetaZOLAMIDE 250 MG TABLET PO SCH ×4 (09:37→20:56)
[2017-03-27] MEDS: SULFAMETHOX/TRIMETHOPRIM 200-40 MG/5 ML -20 ML UDCUP PO SCH (09:37)
[2017-03-27] MEDS: PANTOPRAZOLE 40 MG TABLET PO SCH (09:38)
[2017-03-27] MEDS: POTASSIUM CHLORIDE 20 MEQ/15 ML UDCUP PO SCH (09:38)
[2017-03-27] MEDS: PARoxetine 20 MG TABLET PO SCH (09:38)
[2017-03-27] MEDS: SODIUM CHLORIDE 0.9% 1,000 ML IV PRN (15:07)
[2017-03-27] MEDS: AMPHOTERICIN B LIPOSOMAL IV SCH (16:34)
[2017-03-27] MEDS: DEXTROSE 5% IV SCH (16:34)
[2017-03-28] MEDS: FLUCYTOSINE 500 MG CAPSULE PO SCH ×4 (03:38→22:50)
[2017-03-28 06:33] LABS: Basophils % 1.1 % (0.0-0.8); Eosinophils # 0.7 10*3/uL (0.0-0.87); Eosinophils % 19.7 % (0.00-10.9); Hematocrit 23.2 VOL% (42.0-52.0); Hemoglobin 8.6 GM/DL (14.0-18.0); Immature Granulocytes Absolute 0.07 #; Lymphocytes # 0.6 10*3/uL (1.4-4.0); Lymphocytes % 18.3 % (21.2-54.2); Mean Corpuscular HGB Conc 37.1 GM/DL (32-36); Mean Corpuscular Hemoglobin 32 PG (27-34); Mean Platelet Volume 10.7 FL (9.6-12.0); Monocytes # 0.5 10*3/uL (0.11-0.8); Monocytes % 13.1 % (1.7-12.7); Neutrophils # 1.6 10*3/uL (1.4-7.4); Neutrophils % 45.8 % (38.7-73.9); Platelet Count 152 T/CUMM (130-400); Red Blood Count 2.73 MC/CUMM (3.8-5.5); White Blood Count 3.5 T/CUMM (4-12)
[2017-03-28 07:17] LABS: Albumin 3.3 G/DL (3.4-5.0); Bilirubin,Total 0.9 MG/DL (0.2-1.0); Calcium 9.6 MG/DL (8.5-10.1); Magnesium 2.1 MG/DL (1.8-2.4); Osmolality,Calculated 284.8 MOS/KG (273-304); Potassium 3.2 MMOL/L (3.5-5.1); Total Protein 7.4 G/DL (6.4-8.3)
[2017-03-28 08:00] LABS: Eosinophils 16 % (0-10); Giant Platelets Few; Hypochromasia 1+; Lymphocytes 20 % (20-55); Microcytosis Slight; Ovalocytes Slight; Platelet Estimate Normal; Segmented Neutrophils 53 % (50-85); Total Cells Counted 100
[2017-03-28] MEDS: acetaZOLAMIDE 250 MG TABLET PO SCH ×4 (09:20→22:50)
[2017-03-28] MEDS: PARoxetine 20 MG TABLET PO SCH (09:20)
[2017-03-28] MEDS: SULFAMETHOX/TRIMETHOPRIM 200-40 MG/5 ML -20 ML UDCUP PO SCH (09:20)
[2017-03-28] MEDS: PANTOPRAZOLE 40 MG TABLET PO SCH (09:21)
[2017-03-28] MEDS: POTASSIUM CHLORIDE 20 MEQ/15 ML UDCUP PO SCH ×6 (09:21→15:16)
[2017-03-28] MEDS: AMPHOTERICIN B LIPOSOMAL IV SCH (16:59)
[2017-03-28] MEDS: DEXTROSE 5% IV SCH (16:59)
[2017-03-28] MEDS: ONDANSETRON 4 MG/2 ML VIAL IV PRN (17:59)
[2017-03-29] MEDS: FLUCYTOSINE 500 MG CAPSULE PO SCH ×4 (03:40→21:49)
[2017-03-29] MEDS: POTASSIUM CHLORIDE 20 MEQ TABLET PO PRN (10:01)
[2017-03-29] MEDS: PARoxetine 20 MG TABLET PO SCH (10:01)
[2017-03-29] MEDS: acetaZOLAMIDE 250 MG TABLET PO SCH ×4 (10:01→21:50)
[2017-03-29] MEDS: PANTOPRAZOLE 40 MG TABLET PO SCH (10:01)
[2017-03-29] MEDS: SULFAMETHOX/TRIMETHOPRIM 200-40 MG/5 ML -20 ML UDCUP PO SCH (10:02)
[2017-03-29] MEDS: POTASSIUM CHLORIDE 20 MEQ/15 ML UDCUP PO SCH (10:17)
[2017-03-29] MEDS: SODIUM CHLORIDE 0.9% 1,000 ML IV PRN (16:18)
[2017-03-29] MEDS: ACETAMINOPHEN 325 MG TABLET PO PRN (16:43)
[2017-03-29] MEDS: AMPHOTERICIN B LIPOSOMAL IV SCH (17:16)
[2017-03-29] MEDS: DEXTROSE 5% IV SCH (17:16)
[2017-03-30] MEDS: FLUCYTOSINE 500 MG CAPSULE PO SCH ×4 (03:45→21:46)
[2017-03-30] MEDS: acetaZOLAMIDE 250 MG TABLET PO SCH ×4 (09:32→21:45)
[2017-03-30] MEDS: SULFAMETHOX/TRIMETHOPRIM 200-40 MG/5 ML -20 ML UDCUP PO SCH (09:32)
[2017-03-30] MEDS: PANTOPRAZOLE 40 MG TABLET PO SCH (09:33)
[2017-03-30] MEDS: POTASSIUM CHLORIDE 20 MEQ/15 ML UDCUP PO SCH (09:33)
[2017-03-30] MEDS: PARoxetine 20 MG TABLET PO SCH (09:33)
[2017-03-30] MEDS: POTASSIUM CHLORIDE 20 MEQ TABLET PO PRN ×4 (09:53→21:45)
[2017-03-30] MEDS: SODIUM CHLORIDE 0.9% 1,000 ML IV PRN (14:58)
[2017-03-30] MEDS: AMPHOTERICIN B LIPOSOMAL IV SCH (17:11)
[2017-03-30] MEDS: DEXTROSE 5% IV SCH (17:11)
[2017-03-30] MEDS: AZITHROMYCIN 40 MG/ML 15 ML/BOTTLE PO SCH (17:11)
[2017-03-30] MEDS: ONDANSETRON 4 MG/2 ML VIAL IV PRN (21:49)
[2017-03-31] MEDS: FLUCYTOSINE 500 MG CAPSULE PO SCH ×4 (04:03→20:48)
[2017-03-31 09:28] LABS: Basophils % 1.3 % (0.0-0.8); Eosinophils # 0.6 10*3/uL (0.0-0.87); Eosinophils % 19.9 % (0.00-10.9); Hematocrit 23.2 VOL% (42.0-52.0); Hemoglobin 8.5 GM/DL (14.0-18.0); Immature Granulocytes % 2.6 %; Immature Granulocytes Absolute 0.08 #; Lymphocytes # 0.6 10*3/uL (1.4-4.0); Lymphocytes % 18.2 % (21.2-54.2); Mean Corpuscular HGB Conc 36.6 GM/DL (32-36); Mean Corpuscular Hemoglobin 32 PG (27-34); Mean Corpuscular Volume 86.6 FL (87-102); Monocytes # 0.4 10*3/uL (0.11-0.8); Monocytes % 13.4 % (1.7-12.7); Neutrophils # 1.4 10*3/uL (1.4-7.4); Neutrophils % 44.6 % (38.7-73.9); Platelet Count 139 T/CUMM (130-400); Red Blood Count 2.68 MC/CUMM (3.8-5.5); Red Cell Distribution Width 18.6 % (9.3-17.3); White Blood Count 3.1 T/CUMM (4-12)
[2017-03-31 10:01] LABS: Eosinophils 21 % (0-10); Lymphocytes 17 % (20-55); Segmented Neutrophils 50 % (50-85); Total Cells Counted 100
[2017-03-31 10:02] LABS: Hypochromasia 1+; Microcytosis 1+; Ovalocytes Slight
[2017-03-31 10:03] LABS: Platelet Estimate Adequate
[2017-03-31 10:05] LABS: Albumin 3.1 G/DL (3.4-5.0); Bilirubin,Total 0.4 MG/DL (0.2-1.0); Calcium 9.4 MG/DL (8.5-10.1); Magnesium 1.8 MG/DL (1.8-2.4); Osmolality,Calculated 278.3 MOS/KG (273-304); Potassium 3.6 MMOL/L (3.5-5.1); Total Protein 6.9 G/DL (6.4-8.3)
[2017-03-31] MEDS: ONDANSETRON 4 MG/2 ML VIAL IV PRN (10:27)
[2017-03-31] MEDS: POTASSIUM CHLORIDE 20 MEQ/15 ML UDCUP PO SCH (10:31)
[2017-03-31] MEDS: acetaZOLAMIDE 250 MG TABLET PO SCH ×4 (10:31→20:48)
[2017-03-31] MEDS: PARoxetine 20 MG TABLET PO SCH (10:32)
[2017-03-31] MEDS: SULFAMETHOX/TRIMETHOPRIM 200-40 MG/5 ML -20 ML UDCUP PO SCH (10:32)
[2017-03-31] MEDS: PANTOPRAZOLE 40 MG TABLET PO SCH (10:32)
[2017-03-31] MEDS: SODIUM CHLORIDE 0.9% 1,000 ML IV PRN (14:30)
[2017-03-31] MEDS: AMPHOTERICIN B LIPOSOMAL IV SCH (16:47)
[2017-03-31] MEDS: DEXTROSE 5% IV SCH (16:47)
[2017-04-01] MEDS: FLUCYTOSINE 500 MG CAPSULE PO SCH ×2 (03:45→10:00)
[2017-04-01 04:41] LABS: Basophils % 0.9 % (0.0-0.8); Eosinophils # 0.8 10*3/uL (0.0-0.87); Eosinophils % 22.3 % (0.00-10.9); Hematocrit 22.8 VOL% (42.0-52.0); Hemoglobin 8.3 GM/DL (14.0-18.0); Immature Granulocytes Absolute 0.07 #; Lymphocytes # 0.7 10*3/uL (1.4-4.0); Lymphocytes % 20.9 % (21.2-54.2); Mean Corpuscular HGB Conc 36.4 GM/DL (32-36); Mean Corpuscular Hemoglobin 31 PG (27-34); Mean Corpuscular Volume 85.7 FL (87-102); Mean Platelet Volume 10.5 FL (9.6-12.0); Monocytes # 0.4 10*3/uL (0.11-0.8); Monocytes % 11.6 % (1.7-12.7); Neutrophils # 1.5 10*3/uL (1.4-7.4); Neutrophils % 42.3 % (38.7-73.9); Platelet Count 144 T/CUMM (130-400); Red Blood Count 2.66 MC/CUMM (3.8-5.5); Red Cell Distribution Width 18.2 % (9.3-17.3); White Blood Count 3.5 T/CUMM (4-12)
[2017-04-01 05:00] LABS: Calcium 9.3 MG/DL (8.5-10.1); Osmolality,Calculated 280.1 MOS/KG (273-304); Potassium 3.4 MMOL/L (3.5-5.1)
[2017-04-01 05:15] LABS: Eosinophils 28 % (0-10); Hypochromasia 1+; Lymphocytes 24 % (20-55); Microcytosis Slight; Ovalocytes Slight; Platelet Estimate Normal; Segmented Neutrophils 34 % (50-85); Total Cells Counted 100
[2017-04-01] MEDS: SULFAMETHOX/TRIMETHOPRIM 200-40 MG/5 ML -20 ML UDCUP PO SCH (10:02)
[2017-04-01] MEDS: acetaZOLAMIDE 250 MG TABLET PO SCH ×3 (10:04→15:11)
[2017-04-01] MEDS: PARoxetine 20 MG TABLET PO SCH (10:04)
[2017-04-01] MEDS: PANTOPRAZOLE 40 MG TABLET PO SCH (10:06)
[2017-04-01] MEDS: POTASSIUM CHLORIDE 20 MEQ/15 ML UDCUP PO SCH ×2 (10:06→11:40)
[2017-04-01] MEDS: AZITHROMYCIN 40 MG/ML 15 ML/BOTTLE PO SCH (11:12)
[2017-04-01] MEDS: POTASSIUM CHLORIDE 20 MEQ TABLET PO PRN ×2 (11:41→15:12)
[2017-04-01] MEDS ORDERED: FLUCONAZOLE 40 MG/ML 35 ML/BOTTLE PO SCH (15:00)
[2017-04-01 15:36] LABS: Appearance,CSF Clear; Red Blood Cell,CSF 13 C/CUMM; White Blood Cell,CSF 13 C/CUMM
[2017-04-01 15:39] LABS: Lymphocytes,CSF 100 %
[2017-04-01 17:35] VITALS: BP 105/59
== END 2017-04-01 17:46 | disposition home or self-care (01) | DRG 977 ==
LOC: N.2E 18:23 → SUATTDRO 18:23
PROVIDERS: ADMIT Internal Medicine; ATTEND Internal Medicine

== ENCOUNTER 2017-06-06 12:21 | Inpatient (IN) ==
[2017-06-06] MEDS ORDERED: ONDANSETRON 4 MG/2 ML VIAL IV STA (13:05)
[2017-06-06] MEDS ORDERED: SODIUM CHLORIDE 0.9% 1,000 ML IV STA (13:06)
[2017-06-06] MEDS ORDERED: ONDANSETRON 4 MG/2 ML VIAL ONE (13:58)
[2017-06-06 14:35] LABS: Alanine Aminotransferase 14 U/L (16-61); Albumin 3.6 G/DL (3.4-5.0); Alkaline Phosphatase 78 U/L (45-117); Aspartate Amino Transferase 24 U/L (0-37); Bilirubin,Total < 0.39 MG/DL (0.2-1.0); Blood Urea Nitrogen 30 MG/DL (7-18); Calcium 12.1 MG/DL (8.5-10.1); Glucose 87 MG/DL (74-106); Osmolality,Calculated 281.5 MOS/KG (273-304); Potassium 4.3 MMOL/L (3.5-5.1); Sodium 139 MMOL/L (136-145); Total Protein 7.3 G/DL (6.4-8.3)
[2017-06-06 16:09] LABS: Basophils % 0.9 % (0.0-0.8); Eosinophils # 0.2 10*3/uL (0.0-0.87); Eosinophils % 6.4 % (0.00-10.9); Hematocrit 22.4 VOL% (42.0-52.0); Hemoglobin 7.4 GM/DL (14.0-18.0); Immature Granulocytes % 0.9 %; Immature Granulocytes Absolute 0.02 #; Lymphocytes # 0.4 10*3/uL (1.4-4.0); Lymphocytes % 16.2 % (21.2-54.2); Mean Corpuscular Hemoglobin 30 PG (27-34); Mean Corpuscular Volume 91.4 FL (87-102); Mean Platelet Volume 12.1 FL (9.6-12.0); Monocytes # 0.3 10*3/uL (0.11-0.8); Neutrophils # 1.5 10*3/uL (1.4-7.4); Neutrophils % 63.6 % (38.7-73.9); Red Blood Count 2.45 MC/CUMM (3.8-5.5); Red Cell Distribution Width 13.6 % (9.3-17.3); White Blood Count 2.3 T/CUMM (4-12)
[2017-06-06 16:21] LABS: Platelet Count 87 T/CUMM (130-400)
[2017-06-06 16:34] LABS: Platelet Estimate Decreased
[2017-06-06 16:35] LABS: Elliptocytes Few; Giant Platelets Few; Hypochromasia 1+; Microcytosis Slight
[2017-06-06 17:05] LABS: Ovalocytes Slight
[2017-06-06] MEDS ORDERED: MORPHINE 10 MG/1 ML VIAL IV PRN (17:07)
[2017-06-06] MEDS ORDERED: ONDANSETRON 4 MG/2 ML VIAL IV PRN (17:07)
[2017-06-06] MEDS ORDERED: ACETAMINOPHEN 325 MG TABLET PO PRN (17:07)
[2017-06-06] MEDS ORDERED: SODIUM CHLORIDE 0.9% 1,500 ML IV ONE (17:35)
[2017-06-06] MEDS ORDERED: SODIUM CHLORIDE 0.9% 1,000 ML IV PRN (17:39)
[2017-06-06] MEDS ORDERED: BISACODYL 10 MG SUPP RECTAL PRN (17:41)
[2017-06-06] MEDS ORDERED: BISACODYL 10 MG SUPP RECTAL ONE (17:41)
[2017-06-06] MEDS: SODIUM CHLORIDE 0.9% 1,000 ML IV SCH (19:27)
[2017-06-06 20:47] LABS: Thyroid Stimulating Hormone 4.24 uIU/ml (0.358-3.74)
[2017-06-07 01:33] LABS: Apearance,Urine CLEAR (Clear); Bilirubin,Urine Negative (Negative); Blood, Urine Negative (Negative); Glucose,Urine (UA) Negative (Negative); Hyaline Casts,Urine 6 /LPF (0-3); Ketones,Urine 5 mg/dL (Negative); Mucus,Urine Occasional /LPF (Occasional); Nitrite,Urine Negative (Negative); Protein,Urine Negative; RBC,Urine 1 /HPF (0-4); Urine Color Yellow (Yellow); Urine Specific Gravity 1.005 (1.001-1.035); Urine Urobilinogen < 2.0 EU/DL (0.2-1.0); WBC,Urine 2 /HPF (0-6)
[2017-06-07] MEDS: SODIUM CHLORIDE 0.9% 1,000 ML IV SCH (02:34)
[2017-06-07 06:10] LABS: Basophils % 0.4 % (0.0-0.8); Eosinophils # 0.2 10*3/uL (0.0-0.87); Eosinophils % 7.5 % (0.00-10.9); Hematocrit 24.6 VOL% (42.0-52.0); Immature Granulocytes % 0.8 %; Immature Granulocytes Absolute 0.02 #; Lymphocytes # 0.5 10*3/uL (1.4-4.0); Lymphocytes % 18.7 % (21.2-54.2); Mean Corpuscular HGB Conc 32.5 GM/DL (32-36); Mean Corpuscular Hemoglobin 30 PG (27-34); Mean Corpuscular Volume 91.4 FL (87-102); Mean Platelet Volume 12.6 FL (9.6-12.0); Monocytes # 0.3 10*3/uL (0.11-0.8); Monocytes % 11.2 % (1.7-12.7); Neutrophils # 1.5 10*3/uL (1.4-7.4); Neutrophils % 61.4 % (38.7-73.9); Platelet Count 86 T/CUMM (130-400); Red Blood Count 2.69 MC/CUMM (3.8-5.5); Red Cell Distribution Width 13.8 % (9.3-17.3); White Blood Count 2.4 T/CUMM (4-12)
[2017-06-07 06:43] LABS: Hypochromasia 2+; Microcytosis 2+; Platelet Estimate Decreased
[2017-06-07 06:45] LABS: Calcium 10.5 MG/DL (8.5-10.1); Osmolality,Calculated 294.4 MOS/KG (273-304)
[2017-06-07] MEDS ORDERED: SODIUM CHLORIDE 0.45% 1,000 ML IV SCH (08:30)
[2017-06-07] MEDS: PANTOPRAZOLE 40 MG TABLET PO SCH (09:15)
[2017-06-07] MEDS: PARoxetine 10 MG TABLET PO SCH (09:15)
[2017-06-07] MEDS: DEXTROSE 5% NACL 0.45% 1,000 ML IV SCH (10:46)
[2017-06-07] MEDS: FLUCONAZOLE 200 MG TABLET PO SCH (11:18)
[2017-06-07] MEDS ORDERED: AZITHROMYCIN 250 MG TABLET PO SCH (12:00)
[2017-06-07] MEDS: SULFAMETHOX/TRIMETHOPRIM 400-80 MG TABLET PO SCH (12:47)
[2017-06-08] MEDS: DEXTROSE 5% NACL 0.45% 1,000 ML IV SCH (00:30)
[2017-06-08] MEDS: FLUCONAZOLE 200 MG TABLET PO SCH (09:22)
[2017-06-08] MEDS: PANTOPRAZOLE 40 MG TABLET PO SCH (09:22)
[2017-06-08] MEDS: PARoxetine 10 MG TABLET PO SCH (09:22)
[2017-06-08] MEDS: SULFAMETHOX/TRIMETHOPRIM 400-80 MG TABLET PO SCH (09:22)
[2017-06-08 13:34] VITALS: BP 96/51
[2017-06-10 10:50] LABS: % CD4 (T Cells) 0 % (32-64); % CD8 (T Cells) 48 % (15-40); 4/8 Ratio 0 (>=0.9)
== END 2017-06-08 15:15 | disposition hospice, inpatient (51) | DRG 892 ==
LOC: EDBD → EDUNIT# → N.ED 12:21 → N.EDINP 16:15 → N.ICU 17:44 → N.3E 06-07 14:23
PROVIDERS: ADMIT Internal Medicine; ATTEND Internal Medicine